=== PATIENT | male | born 1960 | race Caucasian/White ===

== ENCOUNTER 2025-04-02 08:47 | Emergency (ER) | payer BC ==
--- OUTSIDE RECORDS SUMMARY | 2025-04-02 08:51 | XMS REPORT | Continuity of Care Document ---
Author Name Unknown Address [address] [facility] [address] [place] [address] [facility] Address [address] [facility] [address] [place] [address] Care Team Providers Care Graphic Production Artist Name Role Phone Soraya Courtney MD, Kush Quinteroyolanda Primary Care Physici an Jacques CORONA, Kathy Renee Attending Clinician KATHY FITZPATRICK Attending Clinician Unavail able Payers Payer Name Policy Type Policy Number Effective Date Expirati on Date Source Problems Condition Name Condition Details Condition Category Status Onset Date Resolution Date Last Treatment Date Treating Clinician Comments Source Essential tremor Essential tremor Disease Active 07-28 00:00: 00 Rubi Nieves Hyperlipid emia Hyperlipid emia Disease Active 07-28 00:00: 00 Rubi Nieves Hypertensi on Hypertensi on Disease Active 07-28 00:00: 00 Rubi Nieves Pituitary cyst Pituitary cyst Disease Active 07-28 00:00: 00 Rubi Nieves Tremor Tremor Disease Active 07-28 00:00: 00 Rubi Nieves Disease due to severe acute respirator y syndrome coronaviru s 2 (SARS-CoV- 2) Disease due to severe acute respirator y syndrome coronaviru s 2 (SARS-CoV- 2) Disease Resolve d 07-28 00:00: 00 2024-07-28 00:00:00 2024-07-28 09:44:50 Rubi Nieves Social History Social Habit Start Date Stop Date Quantity Comments Source Gender identity 2023-09-04 02:08:56 Identifies as male gender (finding) [facility] Sexual orientation M [facility] Cigarettes smoked current (pack per day) - Reported 2024-07-28 00:00:00 2024-07-28 00:00:00 [facility] Cigarette pack-years 2024-07-28 00:00:00 2024-07-28 00:00:00 [facility] Tobacco use and exposure 2024-07-28 00:00:00 2024-07-28 00:00:00 User of smokeless tobacco [facility] Alcoholic beverage intake 2024-07-28 00:00:00 2024-07-28 00:00:00 1.71 /d [facility] History of Social function 2024-07-28 00:00:00 2024-07-28 00:00:00 [facility] History of tobacco use 1999-06-13 00:00:00 Snuff User [facility] Smoking Status Start Date Stop Date Source Ex-smoker 2024-07-28 00:00:00 2024-07-28 00:00:00 [facility] Medications Ordered Medication Name Filled Medication Name Start Date Stop Date Current Medication? Ordering Clinician Indication Dosage Frequency Signature (SIG) Comments Components Source propranolol (Inderal) 20 MG tablet propranolol (Inderal) 20 MG tablet 07-28 00:00: 00 07-28 23:59 :00 No 20mg Q.5D Take 1 tablet by mouth in the morning and 1 tablet in the evening. Rubi mcgowan [facility] propranolol (Inderal) 20 MG tablet propranolol (Inderal) 20 MG tablet 7-05 00:00: 00 07-28 00:00 :00 No = 1 tab, PO, BID, # 180 tab, 3 Refill(s), Pharmacy: [facility], 187.96, cm, 05/04/22 9:53:00 [employer], Height, 133.636, kg, 05/04/22 9:53:00 [employer], Weight Rubi mcgowan [facility] tamsulosin (Flomax) 0.4 MG 24 hr capsule tamsulosin (Flomax) 0.4 MG 24 hr capsule 2021-06 1-21 00:00: 00 07-28 00:00 :00 No .4mg 0.4 mg = 1 cap, PO, Daily, # 90 cap, 0 Refill(s) Rubi Jones [facility] Tamsulosin HCl (FLOMAX PO) Tamsulosin HCl (FLOMAX PO) 930 00:00: 00 Yes .4mg 0.4 mg, PO, Daily, 0 Refill(s) Rubi mcgowan [facility] losartan (Cozaar) 100 MG tablet losartan (Cozaar) 100 MG tablet 02-10 00:00: 00 Yes 100mg 100 mg = 1 tab, PO, Daily, # 30 tab, 0 Refill(s) Rubi mcgowan [facility] tadalafil (Cialis) 5 MG tablet tadalafil (Cialis) 5 MG tablet 02-10 00:00: 00 Yes 5mg 5 mg = 1 tab, PO, Daily, PRN for erectile dysfunctio n, # 30 tab, 0 Refill(s) [facility] Vital Signs Vital Name Observation Time Observation Value Comments S ource Systolic blood pressure 2024-07-28 09:50:00 144 mm[Hg] [facility] Diastolic blood pressure 2024-07-28 09:50:00 83 mm[Hg] [facility] Heart rate 2024-07-28 09:50:00 61 /min [facility] Body temperature 2024-07-28 09:50:00 36.17 Tiesha [facility] Respiratory rate 2024-07-28 09:50:00 16 /min [facility] Body height 2024-07-28 09:50:00 189.2 cm [facility] Body weight 2024-07-28 09:50:00 137.893 kg [facility] BMI 2024-07-28 09:50:00 38.51 kg/m2 [facility] Oxygen saturation in Arterial blood by Pulse oximetry 2024-07-28 09:50:00 99 /min [facility] Systolic blood pressure 2024-07-28 09:50:00 144 mm[Hg] [facility] Diastolic blood pressure 2024-07-28 09:50:00 83 mm[Hg] [facility] Heart rate 2024-07-28 09:50:00 61 /min [facility] Body temperature 2024-07-28 09:50:00 36.17 Tiesha [facility] Respiratory rate 2024-07-28 09:50:00 16 /min [facility] Body height 2024-07-28 09:50:00 189.2 cm Jose Raulgabby [facility] Body weight 2024-07-28 09:50:00 137.893 kg Jose Raulgabby [facility] BMI 2024-07-28 09:50:00 38.51 kg/m2 [facility] Oxygen saturation in Arterial blood by Pulse oximetry 2024-07-28 09:50:00 99 /min [facility] Encounters Start Date/Time End Date/Time Encounter Type Admission Type Attending [facility] Facility Care Department Encounter ID Source 2024-07-28 10:00:00 2024-07-28 10:15:00 Office Visit Kathy Fitzpatrick [id number] Rubi [facility] 2024-07-28 09:35:11 2024-07-28 10:12:05 Outpatient KATHY FITZPATRICK CARLOS EOUT [id number] [facility] Notes Date/Time Note Provider Source 2024-07-28 10:11:43 [facility]2025-02-14 10:11:43* Kathy Fitzpatrick MD - 07/28/2024 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 Has a known small pituitary cyst that we will need to be reimaged at some point in the future but he is not having any symptoms. As long as he takes the propranolol tremors not problematic., Allergies as of 07/28/2024 (No Known Allergies) has a current medication list which includes the following prescription(s): losartan, tadalafil, tamsulosin hcl, and propranolol. Vitals:07/28/24 0950 BP: 144/83 Pulse: 61 Resp: 16 Temp: 36.2 ?C (97.1 ?F) SpO2: 99% Neurological Exam Mental Status Awake and alert. Speech is normal. Cranial NervesCN II: Visual acuity is normal. Right normal visual field. Left normal visual field. CN III, IV, : Extraocular movements intact bilaterally. Pupils equal round and reactive to light bilaterally. CN VII: Full and symmetric facial movement. CN XII: Tongue midline without atrophy or fasciculations. MotorStrength is 5/5 throughout all four extremities. Mild tremor. SensoryLight touch is normal in upper and lower extremities. Temperature is normal in upper and lower extremities. Vibration is normal in upper and lower extremities. ReflexesDeep tendon reflexes: Symmetric. GaitCasual gait is normal including stance, stride, and arm swing. No results found for this or any previous visit. No MRI head results found for the past 12 months Assessment & PlanDiagnoses and all orders for this visit: Essential tremor Pituitary cyst (HCC) Other orders - propranolol (Inderal) 20 MG tablet; Take 1 tablet by mouth in the morning and 1 tablet in the evening. Continue propranolol, repeat MRI at follow-up [facility]2025-02-14 10:11:43Upcoming Encounters Health Maintenance Due Date Last Done Comments CT Colonography 1960 Colonoscopy 1960 Colorectal Cancer Screening 1960 FIT-DNA 1960 FIT 1960 FOBT 1960 Lipid Panel 1960 Medicare Initial Physical (IPPE) 1960 Sigmoidoscopy 1960 Annual Physical 1962 DTaP/Tdap/Td Vaccines (1 - Tdap) 1978 Zoster Vaccines (1 of 2) 2009 Abdominal Aortic Aneurysm (A AA) Screening 01/27/2024 Pneumococcal Vaccine: 65+ Ye ars (1 of 1 - PCV) 01/27/2024 Influenza Vaccine (#1) 2024 Respiratory Syncytial Virus (RSV) or >=60 (1 - 1-dose 75+ series) 2034 HIB Vaccines Aged Out No longer eligi ble based on patient's age to complete this topic HPV Vaccines Aged Out No longer eligi ble based on patient's age to complete this topic Hepatitis A Vaccines Aged Out No long er eligible based on patient's age to complete this topic Hepatitis B Vaccines Aged Out No long er eligible based on patient's age to complete this topic IPV Vaccines Aged Out No longer eligi ble based on patient's age to complete this topic Meningococcal Vaccine Aged Out No dorothy celeste eligible based on patient's age to complete this topic Rotavirus Vaccines Aged Out No longer eligible based on patient's age to complete this topic [id number] 10:11:43 Diagnosis Essential tremor - Primary Pituitary cyst (HCC) Other disorders of the pituitary and other syndromes of diencephalohypophyseal origin [id number] 10:11:43 [place] [id number] 10:11:43* [facility] [id number] 10:11:43 [place] [id number] 10:11:43* Kathy Fitzpatrick MD - 07/28/2024 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 Has a known small pituitary cyst that we will need to be reimaged at some point in the future but he is not having any symptoms. As long as he takes the propranolol tremors not problematic., Allergies as of 07/28/2024 (No Known Allergies) has a current medication list which includes the following prescription(s): losartan, tadalafil, tamsulosin hcl, and propranolol. Vitals:07/28/24 0950 BP: 144/83 Pulse: 61 Resp: 16 Temp: 36.2 ?C (97.1 ?F) SpO2: 99% Neurological Exam Mental Status Awake and alert. Speech is normal. Cranial NervesCN II: Visual acuity is normal. Right normal visual field. Left normal visual field. CN III, IV, : Extraocular movements intact bilaterally. Pupils equal round and reactive to light bilaterally. CN VII: Full and symmetric facial movement. CN XII: Tongue midline without atrophy or fasciculations. MotorStrength is 5/5 throughout all four extremities. Mild tremor. SensoryLight touch is normal in upper and lower extremities. Temperature is normal in upper and lower extremities. Vibration is normal in upper and lower extremities. ReflexesDeep tendon reflexes: Symmetric. GaitCasual gait is normal including stance, stride, and arm swing. No results found for this or any previous visit. No MRI head results found for the past 12 months Assessment & PlanDiagnoses and all orders for this visit: Essential tremor Pituitary cyst (HCC) Other orders - propranolol (Inderal) 20 MG tablet; Take 1 tablet by mouth in the morning and 1 tablet in the evening. Continue propranolol, repeat MRI at follow-up [facility]2025-02-14 10:11:43Upcoming Encounters Health Maintenance Due Date Last Done Comments CT Colonography 1960 Colonoscopy 1959 Colorectal Cancer Screening 1959 FIT-DNA 1959 FIT 1959 FOBT 1959 Lipid Panel 1959 Medicare Initial Physical (IPPE) 1959 Sigmoidoscopy 1959 Annual Physical 1962 DTaP/Tdap/Td Vaccines (1 - Tdap) 1978 Zoster Vaccines (1 of 2) 2009 Abdominal Aortic Aneurysm (A AA) Screening 01/27/2024 Pneumococcal Vaccine: 65+ Ye ars (1 of 1 - PCV) 01/27/2024 Influenza Vaccine (#1) 2024 Respiratory Syncytial Virus (RSV) or >=60 (1 - 1-dose 75+ series) 2034 HIB Vaccines Aged Out No longer eligi ble based on patient's age to complete this topic HPV Vaccines Aged Out No longer eligi ble based on patient's age to complete this topic Hepatitis A Vaccines Aged Out No long er eligible based on patient's age to complete this topic Hepatitis B Vaccines Aged Out No long er eligible based on patient's age to complete this topic IPV Vaccines Aged Out No longer eligi ble based on patient's age to complete this topic Meningococcal Vaccine Aged Out No dorothy celeste eligible based on patient's age to complete this topic Rotavirus Vaccines Aged Out No longer eligible based on patient's age to complete this topic [id number] 10:11:43 Diagnosis Essential tremor - Primary Pituitary cyst (HCC) Other disorders of the pituitary and other syndromes of diencephalohypophyseal origin [facility] [id number] 10:11:43 Jose Antonio Jones
--- NOTE | 2025-04-02 09:46 | RAD REPORT ---
EXAMINATION: ONE VIEW CHEST XR CLINICAL INDICATION: Cough;Fever TECHNIQUE: Frontal chest projection is submitted. Examination is limited by patient positioning and t echnique. COMPARISON: No prior exam. FINDINGS: Patchy infiltrate is present medial left lung base. This is likely pneumonia. The lungs are otherwise clear. The heart is upper limit of normal in size. No displaced fractures identified. IMPRESSION: Patchy infiltrate/pneumonia medial left lung base.
[2025-04-02 09:51] LABS: Influenza A Ag Negative; Influenza B Ag Negative
[2025-04-02 09:52] LABS: SARS-CoV-2 Antigen Rapid Res Negative (Negative)
--- NOTE | 2025-04-02 10:03 | ER ---
Nurse's Notes [facility] Name: Nilson Smalls Jr Age: 65 yrs Sex: Male : 1960 Arrival Date: 04/02/2025 Time: 08:47 Bed IW1 Private MD: Diagnosis: Unspecified bacterial pneumonia Presentation: 04/02 09:07 Chief complaint: Headache, fever, chills, body aches x 5-6 days. Coronavirus screen: hb Client presents with at least one sign or symptom that may indicate coronavirus-19. Provider contacted for isolation considerations. Ebola Screen: No symptoms or risks identified at this time. Initial Sepsis Screen: Does the patient meet any 2 criteria? No. Patient's initial sepsis screen is negative. Does the patient have a suspected source of infection? No. Patient's initial sepsis screen is negative. Risk Assessment: Do you want to hurt yourself or someone else? Patient reports no desire to harm self or others. Onset of symptoms was March 28, 2025. 09:07 Method Of Arrival: Ambulatory 09:07 Acuity: ESTELA 4 hb Triage Assessment: 09:08 General: Appears in no apparent distress. ill, Behavior is calm, cooperative. Pain: hb Pain currently is 1 out of 10 on a pain scale. Neuro: GCS 15. Cardiovascular: Patient's skin is warm and dry. Respiratory: Reports cough that is Respiratory effort is even, unlabored, Respiratory pattern is regular, symmetrical. Historical: - Allergies: 09:09 No Known Allergies; hb - Immunization history:: Adult Immunizations up to date. - Infectious Disease History:: Denies. - Social history:: Smoking status: Patient denies any tobacco usage or history of. Vital Signs: 09:08 BP 112 / 71; Pulse 109; Resp 18; Temp 98.4; Pulse Ox 96% on R/A; Weight 132 kg; Height hb 6 ft. 4 in. ; Pain 06/23; 09:08 Body Mass Index 35.42 (132.00 kg, 193.04 cm) hb 09:08 Pain Scale: Adult hb ED Course: 08:51 Patient arrived in ED. al6 08:52 [facility]C [facility] 08:52 Olayinka Arriola MD is Attending Physician. dr5 09:08 Triage completed. hb 09:09 Arm band placed on. hb 09:18 Group A Streptococcus Rapid Sent. bc6 09:18 COVID-19 Ag + Flu A+B Ag Sent. bc6 09:22 Chest Single View XRAY In Process Unspecified. EDMS 10:11 Viri Kelly, RN is Primary Nurse. hb Administered Medications: No medications were administered Outcome: 10:02 Discharge ordered by MD. dr5 10:11 Discharged to home ambulatory, with significant other, hb 10:11 Condition: stable 10:11 Discharge instructions given to patient, Instructed on discharge instructions, follow up and referral plans. medication usage, Demonstrated understanding of instructions, follow-up care, medications, Prescriptions given X 2, 10:12 Patient left the ED. hb Signatures: Dispatcher [employer] EDGA Viri Kelly RN RN SunitalienVelma bc6 Jarrod Damon, CLASS B TRUCK DRIVER-C CLASS B TRUCK DRIVER-Cdr5 Yani Oshea6 Corrections: (The following items were deleted from the chart) 09:10 09:08 BP 112 / 71; Pulse 109bpm; Resp 18bpm; Pulse Ox 96% RA; hb hb 09:11 09:07 Acuity: ESTELA 3 hb hb
--- NOTE | 2025-04-02 10:03 | EDPHYS ---
Physician Documentation [facility] Name: Nilson Smalls Jr Age: 65 yrs Sex: Male : 1960 Arrival Date: 04/02/2025 Time: 08:47 Bed IW1 Private MD: ED Physician Olayinka Arriola HPI: 04/02 10:34 This 65 yrs old Male presents to ER via Ambulatory with complaints of Flu dr5 Symptoms. 10:34 Onset: The symptoms/episode began/occurred 2 week(s) ago. Patient is a 65-year-old male dr5 with no past medical history coming in with cough, congestion, fever, flulike symptoms this been going on for the past 2 weeks. Patient reports his symptoms have been intermittent and come and go. Patient reports this morning had fever and really bad cough. Patient denies chest pain, shortness of breath, abdominal pain, nausea, vomiting, fever.. Historical: - Allergies: 09:09 No Known Allergies; hb - Immunization history:: Adult Immunizations up to date. - Infectious Disease History:: Denies. - Social history:: Smoking status: Patient denies any tobacco usage or history of. ROS: 10:34 Constitutional: as per hpi dr5 Exam: 10:34 Constitutional: This is a well developed, well nourished patient who is awake, alert, dr5 and in no acute distress. Head/Face: Normocephalic, atraumatic. Eyes: Pupils equal round and reactive to light, extra-ocular motions intact. Lids and lashes normal. Conjunctiva and sclera are non-icteric and not injected. Cornea within normal limits. Periorbital areas with no swelling, redness, or edema. Neck: Trachea midline, no thyromegaly or masses palpated, and no cervical lymphadenopathy. Supple, full range of motion without nuchal rigidity, or vertebral point tenderness. No Meningismus. Chest/axilla: Normal chest wall appearance and motion. Nontender with no deformity. No lesions are appreciated. Cardiovascular: Tachycardic rate and rhythm with a normal S1 and S2. Normal PMI, no JVD. No pulse deficits. Respiratory: Lungs have equal breath sounds bilaterally, clear to auscultation except left middle lobe has rhonchi. No rales, rhonchi or wheezes noted in other lobes. No increased work of breathing, no retractions or nasal flaring. Abdomen/GI: Soft, non-tender, non-distended Back: No spinal tenderness. No costovertebral tenderness. Full range of motion. Skin: Warm, dry with normal turgor. Normal color with no rashes, no lesions, and no evidence of cellulitis. MS/ Extremity: Pulses equal, no cyanosis. Neurovascular intact. Full, normal range of motion. Neuro: Awake and alert, GCS 15, oriented to person, place, time, and situation. Cranial nerves II-XII grossly intact. Motor strength 5/5 in all extremities. Sensory grossly intact. Cerebellar exam normal. Normal gait. Vital Signs: 09:08 BP 112 / 71; Pulse 109; Resp 18; Temp 98.4; Pulse Ox 96% on R/A; Weight 132 kg; Height hb 6 ft. 4 in. ; Pain 10; 09:08 Body Mass Index 35.42 (132.00 kg, 193.04 cm) hb 09:08 Pain Scale: Adult hb MDM: 09:06 Medical Screening Exam initiated dr5 10:34 Differential diagnosis: viral Infection, bacterial infection, URI, pneumonia. Data dr5 reviewed: vital signs, nurses notes, lab test result(s), Flu: negative COVID negative, Strep Negative, radiologic studies. Consideration of Admission/Observation Escalation of care including admission/observation considered. Escalation considered patient found to have fever and p.o. intolerance. I considered the following discharge prescriptions or medication management in the emergency department I discussed and recommended Over The Counter medications, Medications were administered in the Emergency Department. See MAR. Historians other than the Patient: Spouse/Significant Other: Spouse. Care significantly affected by the following Social Determinants of Health: Poor access to healthcare and/or lack of insurance, Poor access to transportation, Problems related to employment. Counseling: I had a detailed discussion with the patient and/or guardian regarding the historical points, exam findings, and any diagnostic results supporting the discharge/admit diagnosis, the presence of at least one elevated blood pressure reading (>120/80) during this emergency department visit, lab results, radiology results, the need for outpatient follow up, for definitive care, a family practitioner, to return to the emergency department if symptoms worsen or persist or if there are any questions or concerns that arise at home. Special discussion: I discussed with the patient/guardian in detail that at this point there is no indication for admission to the hospital. It is understood, however, that if the symptoms persist or worsen the patient needs to return immediately for re-evaluation. Based on the history and exam findings, there is no indication for further emergent testing or inpatient evaluation. I discussed with the patient/guardian the need to see the primary care provider for further evaluation of the symptoms. ED course: Will give antibiotics for community-acquired pneumonia. Steroid Dosepak also given. Recommended patient increase hydration, alternate Tylenol and Motrin as needed for pain and fever. All question answered. Strict ER precautions given. Patient is well-appearing on discharge. 04/02 09:11 Order name: COVID-19 Ag + Flu A+B Ag; Complete Time: 09:59 hb 04/02 09:11 Order name: Group A Streptococcus Rapid; Complete Time: 09:44 hb 04/02 09:45 Order name: Throat Culture EDUT 04/02 09:11 Order name: Chest Single View XRAY; Complete Time: 09:47 hb Administered Medications: No medications were administered Disposition Summary: 04/02/25 10:02 Discharge Ordered Notes: Location: Home dr5 Condition: Stable dr5 Diagnosis - Unspecified bacterial pneumonia dr5 Followup: dr5 - With: Emergency Department - When: As needed - Reason: Worsening of condition Followup: dr5 - With: Private Physician - When: 1 - 2 days - Reason: Recheck today's complaints, Continuance of care, Re-evaluation by your physician Discharge Instructions: - Discharge Summary Sheet dr5 - Community-Acquired Pneumonia, Adult dr5 Forms: - Work release form dr5 - Medication Reconciliation Form dr5 - Antibiotic Education dr5 - Patient Portal Instructions dr5 - Leadership Thank You Letter dr5 Prescriptions: - Augmentin 875-125 mg Oral Tablet - take 1 tablet ORAL route every 12 hours for 10 days; 20 tablet; Refills: 0, dr5 Product Selection Permitted - Medrol (Jett) 4 mg Oral Tablets, Dose Pack - take 1 tablet ORAL route as directed - follow package instructions; 1 packet; dr5 Refills: 0, Product Selection Permitted Signatures: Dispatcher [employer] EDUT Viri Kelly RN RN Jarrod Lundberg, STABLE HELPER-C STABLE HELPER-Cdr5 Corrections: (The following items were deleted from the chart) 09:12 09:12 COVID-19 Ag + Flu A+B Ag+I.LAB.BRZ ordered. EDMS EDMS 09:12 Group A Streptococcus Rapid Sc+I.LAB.BRZ ordered. EDMS EDMS :12 Chest Single View+RAD.RAD.BRZ ordered. EDMS EDMS
[2025-04-02 13:55] VITALS: BP 112/71; TEMP 98.4; O2SAT 96
== END 2025-04-02 10:12 | disposition home or self-care (01) ==
LOC: ER 08:47
DX: J15.9 Unspecified bacterial pneumonia (principal); Z11.52 Encounter for screening for COVID-19
CPT/HCPCS: 36415; 71045; 87070; 87428; 99283